=== PATIENT | female | born 1980 | race Caucasian/White ===

== ENCOUNTER 2020-06-02 09:38 | Outpatient (NON) | payer OTHER, SELFPAY ==
[2020-06-02 22:27] LABS: SARS-CoV-2 RNA PCR Negative
== END 2020-06-02 09:39 ==
PROVIDERS: Family Provider Family Medicine; PCP Family Medicine; Visit Provider Nurse Practitioner Family
DX: J06.9 Acute upper respiratory infection, unspecified (principal); Z20.822 Contact with and (suspected) exposure to COVID-19
CPT/HCPCS: C9803; U0003; U0005

== ENCOUNTER 2020-06-02 09:40 | Outpatient (NON) | payer OTHER, SELFPAY ==
[2020-06-02 14:19] LABS: Influenza Control Positive
== END 2020-06-02 09:41 ==
PROVIDERS: Family Provider Family Medicine; PCP Family Medicine; Visit Provider Nurse Practitioner Family
DX: R09.89 Other specified symptoms and signs involving the circulatory and respiratory systems (principal)
CPT/HCPCS: 87804

== ENCOUNTER → 2020-07-06 09:02 | Outpatient (CLI) | payer OTHER, SELFPAY ==
--- NOTE | ~2020-07-06 | XR_ITS ---
EXAMINATION: XR knee LT 3V DATE: 07/06/2020 09:25 INDICATION: Left knee injury. TECHNIQUE: 3 views of left knee were obtained. COMPARISON: Left knee radiographs 05/21/2012 FINDINGS: Bone alignment is normal. No fracture. There is mild osteoarthritis of medial and patellofe moral compartments. No knee joint effusion. IMPRESSION: 1. Mild left knee osteoarthritis. Reviewed, dictated and finalized at location A. 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
== END ==
PROVIDERS: PCP Family Medicine; Visit Provider Nurse Practitioner Family
DX: S89.82XA Other specified injuries of left lower leg, initial encounter (principal); M17.12 Unilateral primary osteoarthritis, left knee
CPT/HCPCS: 73562

== ENCOUNTER 2020-08-06 08:09 | Emergency (ER) | payer OTHER, SELFPAY ==
--- NOTE | ~2020-08-06 | XR_ITS ---
XR cervical spine 4-5V INDICATION: Left-sided neck pain TECHNIQUE: 5 views of the cervical spine. FINDINGS: No prior studies for comparison. The cervical spine is visualized to the cervicothoracic junction. There is no prevertebral soft tiss ue swelling, listhesis, or loss of vertebral body height. Intervertebral disc spaces are normal. Th e osseous central canal is patent. No displaced cervical spine fractures are identified. IMPRESSION: 1. No acute osseous abnormality of the cervical spine. Reviewed, dictated and finalized at location B.
--- NOTE | 2020-08-06 08:25 | ED.NECK ---
HPI - Neck Pain/Injury General Chief Complaint: Neck Pain/Injury Stated Complaint: neck pain Time Seen by Provider: 08/06/20 08:30 Source: patient, RN notes reviewed and old records reviewed Mode of arrival: ambulatory Limitations: no limitations History of Present Illness HPI Narrative: 40-year-old female who presents to [facility] care with complaints of left-sided neck pain with increased intensity since Sunday.Patient states that she went to the chiropractor and had trigger point injections on Sunday and she had an adjustment on with no improvement in her pain. Patient states that her pain is on the left side of her neck and it radiates down shoulder to her elbow on the outside region of arm. Patient states that she is having spasms to her neck and pain. She reports taking Flexeril, Nabumetone and also tramadol with minimal decrease in her symptoms. Patient states that she had a fall in June and has had problems with her neck since with increase since Sunday with no precipitated factor. MD complaint: neck pain Onset (ago): day(s) (4) Radiation: left lateral (neck), left shoulder and left upper extremity (to elbow) Severity: severe Severity scale (1-10): 8 Quality: aching Exacerbating factors: other (movement) Context: fall (in June symptoms exacerbated since Sunday) and recent chiropractic manipulation Treatments prior to arrival: prescription analgesic and other (muscle relaxer and nabumetone) Related Data Home Medications Medication Instructions Recorded Confirmed triamcinolone acetonide 55 mcg 2 spray NASAL DAILY 03/27/19 07/07/20 nasal spray aerosol Allergies Allergy/AdvReac Type Severity Reaction Status Date / Time No Known Allergies Allergy Unknown Verified 06/17/20 10:01 Review of Systems Review of Systems: Narrative: CONSTITUTIONAL: Denies fever, chills, or sweats. EYES: Denies visual changes, redness, or discharge. ENT: Denies rhinorrhea, congestion, sore throat, or otalgia. CARDIOVASCULAR: Denies chest pain, palpitations, or edema. RESPIRATORY: Denies cough or dyspnea. GASTROINTESTINAL: Denies abdominal pain, nausea, vomiting, or diarrhea. GENITOURINARY: Denies dysuria or hematuria. SKIN: Denies rash or itching. MUSCULOSKELETAL: Positive for acute left neck pain and history of chronic lower back pain, joint pain, or myalgia. NEUROLOGIC: Denies headache, numbness, or weakness. PSYCHIATRIC: Positive anxiety or depression. All systems reviewed & are unremarkable except as noted in HPI and below PMFSH Past Medical History Medical History (Updated 08/06/20 @ 09:55 by Selena Amaya NP) BMI 37.0-37.9, adult Chronic lower back pain Hidradenitis suppurativa History of sinus problem Surgical History Surgical History (Updated 08/06/20 @ 08:33 by Selena Amaya NP) History of lumbosacral spine surgery Family History Family History Father No problems noted. Mother No problems noted. 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 There is no relevant family history pertinent to the presenting complaint Exam Narrative: Exam Narrative: GENERAL: Well-appearing, well-nourished, and in mild acute distress. HEAD: Normocephalic, atraumatic. EYES: PERRLA and EOMI. ENT: Nares clear, no rhinorrhea or epistaxis. Mucous membrane
[2020-08-06 08:29] VITALS: BP 135/81; PULSE 108; RESP 16; TEMP 36.7; O2SAT 99
== END 2020-08-06 09:39 | disposition home or self-care (01) ==
PROVIDERS: Emergency Provider Registered Nurse; PCP Family Medicine
DX: M62.838 Other muscle spasm (principal); F17.200 Nicotine dependence, unspecified, uncomplicated
CPT/HCPCS: 72050; 99213; G0463

== ENCOUNTER 2021-01-09 14:32 | Emergency (ER) | payer OTHER, SELFPAY ==
[2021-01-09 14:43] VITALS: BP 132/86; PULSE 103; RESP 18; TEMP 36.4; O2SAT 98
--- NOTE | 2021-01-09 16:55 | ED.BACK ---
HPI - Back Pain/Injury General Chief Complaint: Back Pain/Injury Stated Complaint: Back Pain Time Seen by Provider: 01/09/21 16:00 Source: patient, RN notes reviewed and old records reviewed Mode of arrival: ambulatory Limitations: no limitations History of Present Illness HPI Narrative: 40 year old female who presents to [facility] care with complaints of right sided lower back pain which radiates down her right leg for the past week. Patient states history of previous back surgery and reports that she had cervical fusion in October and can not take any antiinflammatory medications for 6 months due to fusion of neck.Patient reports that she has also had some spasms to her right lower back for the past 3 days and reports some numbness at times to her right lower extremity.Has had injections to back in the past to her back and previous lumbar surgeries. MD elicited complaint: back pain Related Data Home Medications Medication Instructions Recorded Confirmed Flonase Allergy Relief 01/09/21 01/13/21 Allergies Allergy/AdvReac Type Severity Reaction Status Date / Time No Known Allergies Allergy Unknown Verified 01/13/21 10:41 Review of Systems Review of Systems: CONSTITUTIONAL: Denies fever, chills, or sweats. EYES: Denies visual changes, redness, or discharge. ENT: Denies rhinorrhea, congestion, sore throat, or otalgia. CARDIOVASCULAR: Denies chest pain, palpitations, or edema. RESPIRATORY: Denies cough or dyspnea. GASTROINTESTINAL: Denies abdominal pain, nausea, vomiting, or diarrhea. GENITOURINARY: Denies dysuria or hematuria. SKIN: Denies rash or itching. MUSCULOSKELETAL: Positive for right sided lower back pain with radiation down right leg acute on chronic condition with no reported known recent injury, cervical spine fusion October 2020 NEUROLOGIC: Denies headache, numbness, or weakness. PSYCHIATRIC: Denies anxiety or depression. All systems reviewed & are unremarkable except as noted in HPI and below PMFSH Past Medical History Medical History (Updated 01/14/21 @ 09:34 by Selena Amaya NP) BMI 37.0-37.9, adult BMI 38.0-38.9,adult BMI 39.0-39.9,adult Chronic lower back pain Fusion of spine, cervical region October 2020 Hidradenitis suppurativa History of sinus problem Sciatica Surgical History Surgical History History of lumbosacral spine surgery Family History Family History Father No problems noted. Mother No problems noted. 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 There is no relevant family history pertinent to the presenting complaint Exam Narrative: GENERAL: Well-appearing, well-nourished, and in no acute distress. HEAD: Normocephalic, atraumatic. EYES: PERRLA and EOMI. ENT: Nares clear, no rhinorrhea or epistaxis. Mucous membranes moist.TM's normal with good light reflex, throat pink with no lesions, exudates, or any tonsil enlargement. NECK: Supple.no lymphadenopathy cervical spinal fusion October 2020 CHEST: Clear to auscultation. No respiratory distress.SAO2 98% on room air HEART: Regular rate and rhythm. No murmur heard. Normal peripheral pulses. ABDOMEN: Soft, nontender, nondistended, normal active bowel sounds. EXTREMITIES: Normal range of motion. No
== END 2021-01-09 17:25 | disposition home or self-care (01) ==
PROVIDERS: Emergency Provider Registered Nurse; PCP Family Medicine
DX: M54.41 Lumbago with sciatica, right side (principal)
CPT/HCPCS: 99213; G0463

== ENCOUNTER → 2021-06-21 10:51 | Outpatient (CLI) | payer OTHER, SELFPAY ==
--- NOTE | ~2021-06-21 | XR_ITS ---
XR_CERV2-3V_CR DATE: 06/21/2021 11:06 INDICATION: Neck pain TECHNIQUE: AP, lateral, open-mouth views COMPARISON: August 06, 2020 cervical spine FINDINGS: There is interval anterior and interbody cervical spine surgical fusion at C5-C7 since Apri l 2020. There is straightening of the cervical spine. C1 and C2 are normally aligned and the odontoid process is intact. No fracture or dislocation, locked facet or prevertebral soft tissue swelling. C2-3 through C4-5 and C7-T1 interspaces appear well preserved. IMPRESSION: Status post anterior and interbody spinal fusion at C5-C7 Straightening of the cervical spine Reviewed, dictated and finalized at Location A. Reviewed, dictated and finalized at location B. 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
== END ==
PROVIDERS: PCP Nurse Practitioner Family; Visit Provider Nurse Practitioner Family
DX: M54.2 Cervicalgia (principal); Z98.1 Arthrodesis status
CPT/HCPCS: 72040

== ENCOUNTER → 2021-09-28 15:11 | Outpatient (CLI) | payer OTHER, SELFPAY ==
--- NOTE | ~2021-09-28 | MR_ITS ---
EXAMINATION: MR cervical spine wo/w con DATE: 09/28/2021 17:01 INDICATION: Neck pain since May 2021 with right-sided radiation. No trauma. TECHNIQUE: Magnetic resonance imaging (MRI) of the cervical spine was performed without and with 20 m L MultiHance intravenous contrast. Sequences included sagittal T2-weighted FSE, sagittal T2-weighted FS FSE, sagittal T1-weighted FSE, axial MERGE, and axial T2-weighted FSE. COMPARISON: X-ray cervical spine 06/21/2021. FINDINGS: Trace right mastoid effusion. C5-C7 ACDF, with expected artifacts. Craniocervical associati on and atlantoaxial joint are intact. Normal alignment. Vertebral body heights are maintained. Normal discs. The cord signal is normal. The following disc levels are specifically discussed: C2-C3: Mild diffuse bulge. There is mild left uncovertebral joint osteoarthritis. There is no facet j oint osteoarthritis. There is no neural foraminal stenosis. There is no central canal stenosis. C3-C4: The disc does not extend beyond the endplate margin. There is mild bilateral uncovertebral kiel nt osteoarthritis. There is no facet joint osteoarthritis. There is no neural foraminal stenosis. The re is no central canal stenosis. C4-C5: The disc does not extend beyond the endplate margin. There is mild bilateral uncovertebral kiel nt osteoarthritis. There is no facet joint osteoarthritis. There is no neural foraminal stenosis. The re is no central canal stenosis. C5-C6: Interbody plug remains in good position. There is mild left uncovertebral joint osteoarthritis . There is no facet joint osteoarthritis. There is no neural foraminal stenosis. There is no central canal stenosis. C6-C7: The disc does not extend beyond the endplate margin. There is mild bilateral uncovertebral kiel nt osteoarthritis. There is mild facet joint osteoarthritis. There is no neural foraminal stenosis. T here is no central canal stenosis. C7-T1: The disc does not extend beyond the endplate margin. There is mild left uncovertebral joint os teoarthritis. There is mild facet joint osteoarthritis. There is no neural foraminal stenosis. There is no central canal stenosis. IMPRESSION: 1. ACDF spanning the C5-6 and C6-levels, without obvious complication. However, hardware artifact obs cures some detail of the cord and these levels. 2. Mild degenerative uncovertebral joint and facet changes described above. Reviewed, dictated and finalized at location K. IMPRESSION: 1. ACDF spanning the C5-6 and C6-levels, without obvious complication. However, hardware artifact obscures some detail of the cord and these levels. 2. Mild degenerative uncovertebral joint and facet changes described above.
[2021-09-28 16:04] LABS: Estimated Glomerular Filt Rate > 60
== END ==
PROVIDERS: PCP Family Medicine; Visit Provider Nurse Practitioner Family
DX: M47.813 Spondylosis without myelopathy or radiculopathy, cervicothoracic region (principal); M48.03 Spinal stenosis, cervicothoracic region
CPT/HCPCS: 72156; A9577

== ENCOUNTER 2022-08-16 18:56 | Emergency (ER) | payer OTHER, SELFPAY ==
[2022-08-16 19:05] VITALS: BP 129/91; PULSE 81; RESP 16; TEMP 36.4; O2SAT 98
[2022-08-16 19:06] VITALS: BP 129/91; PULSE 81; RESP 16; TEMP 36.4; O2SAT 98
--- NOTE | 2022-08-16 19:09 | ED.ABDPAIN ---
HPI - Abdominal Pain General Chief Complaint: Abdominal Pain Stated Complaint: Abdominal Pain Time Seen by Provider: 08/16/22 19:09 Source: patient and RN notes reviewed Mode of arrival: ambulatory Limitations: no limitations History of Present Illness HPI narrative: 42-year-old female presented for complaint of upper abdominal pain since this morning. She he endorses the onset was after drinking a monster energy drink without having eaten. She also reports she has been taking prednisone for 3 days, despite history of gastric bypass surgery. She for as she was not supposed to take oral steroids; prescribed for back pain. Also reports diarrhea, which she relates to taking clindamycin for planned root canal. Denies vomiting, fever or chills. Related Data Home Medications Medication Instructions Recorded Confirmed amoxicillin 500 mg capsule 500 mg PO DIRECTED 08/16/22 08/16/22 loratadine 10 mg tablet (Claritin) 10 mg PO DAILY 08/16/22 08/16/22 omeprazole 40 mg capsule,delayed 40 mg PO DAILY 08/16/22 08/16/22 release Allergies Allergy/AdvReac Type Severity Reaction Status Date / Time No Known Allergies Allergy Unknown Verified 08/16/22 19:04 Review of Systems Review of Systems: CONSTITUTIONAL: Denies body aches, fever, chills ENT: Denies rhinorrhea, congestion CARDIOVASCULAR: Denies chest pain, palpitations, or edema. RESPIRATORY: Denies cough or dyspnea. GASTROINTESTINAL: Endorses abdominal pain, nausea, vomiting, diarrhea. Denies hematochezia, melena, hematemesis GENITOURINARY: Denies dysuria, hematuria, or CVA tenderness. SKIN: Denies rash, itching, or wounds. MUSCULOSKELETAL: Denies back pain, joint pain, or myalgia. NEUROLOGIC: Denies headache, numbness, tingling, or weakness. All systems reviewed & are unremarkable except as noted in HPI and below PMFSH Past Medical History Medical History BMI 37.0-37.9, adult BMI 38.0-38.9,adult BMI 39.0-39.9,adult Chronic lower back pain Fusion of spine, cervical region October 2020 Hidradenitis suppurativa History of sinus problem Sciatica Surgical History Surgical History History of lumbosacral spine surgery Status following surgery for weight loss Family History Family History Father No problems noted. Mother No problems noted. 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 Please see nursing chart for further information. There is no relevant family history pertinent to the presenting complaint Exam Narrative: GENERAL: mildly ill-appearing, in no acute distress. EYES: EOMI. Conjunctivae normal. ENT: Mucous membranes pink and moist. CHEST: No respiratory distress. Clear to auscultation. HEART: Regular rate and rhythm. No murmur appreciated. Normal peripheral pulses. ABDOMEN: abd soft, nondistended, normal active bowel sounds. Tender abdomen RUQ > epigastric area; No guarding, rebound tenderness, asymmetry EXTREMITIES: Normal range of motion. No edema. SKIN: Warm, dry, no rash. Capillary refill normal. Normal skin turgor. NEUR
== END 2022-08-16 19:28 | disposition home or self-care (01) ==
PROVIDERS: Emergency Provider Nurse Practitioner Family; PCP Family Medicine
DX: R10.11 Right upper quadrant pain (principal); R10.13 Epigastric pain; F17.290 Nicotine dependence, other tobacco product, uncomplicated
CPT/HCPCS: 99213; G0463

== ENCOUNTER → 2023-02-28 07:32 | Outpatient (CLI) | payer OTHER, SELFPAY ==
--- NOTE | ~2023-02-28 | XR_ITS ---
XR hip LT 2V w AP pelvis DATE: 02/28/2023 07:53 INDICATION: Left hip pain TECHNIQUE: AP pelvis. AP and lateral views of left hip. COMPARISON: None FINDINGS: Postsurgical changes including lower lumbar laminectomy and posterior and interbody spinal fusion at L4-S1. IUD overlies the pelvis. Normal alignment at the pubic symphysis and sacroiliac joints. No pelvic fracture or bone destruction is detected. No fracture or dislocation, avascular necrosis or bone destruction of the left hip. Hip joint spaces are symmetric and relatively preserved. IMPRESSION: Status post posterior and interbody spinal surgical fusion at L4-S1 IUD Reviewed, dictated and finalized at location A.
== END ==
PROVIDERS: PCP Physician Assistant Medical; Visit Provider Physician Assistant Medical
DX: M43.26 Fusion of spine, lumbar region (principal); M43.28 Fusion of spine, sacral and sacrococcygeal region; G89.29 Other chronic pain
CPT/HCPCS: 73502

== ENCOUNTER → 2023-06-25 16:17 | Outpatient (CLI) | payer OTHER, SELFPAY ==
--- NOTE | ~2023-06-25 | XR_ITS ---
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 RESULT: Lines, tubes, and devices: None. Lungs and pleura: Clear. Cardiomediastinal silhouette: Normal. Other: No acute osseous or upper abdominal finding. IMPRESSION: No acute cardiopulmonary process. Reviewed, dictated and finalized at location K. WORK FEEDER
== END ==
PROVIDERS: PCP Family Medicine; Visit Provider Nurse Practitioner Family
DX: J06.9 Acute upper respiratory infection, unspecified (principal)
CPT/HCPCS: 71046

== ENCOUNTER 2023-12-15 08:45 | Emergency (ER) | payer OTHER, SELFPAY ==
--- NOTE | ~2023-12-15 | XR_ITS ---
EXAMINATION: XR foot RT min 3V DATE: 12/15/2023 09:10 INDICATION: Right foot pain. Injury. TECHNIQUE: 4 views of right foot were obtained. COMPARISON: None. FINDINGS: There are changes of bunionectomy with 2 screws in first metatarsal. There is a punctate ca lcification adjacent to anterior process of calcaneus. There is mild osteoarthritis of some of the in terphalangeal joints. There is an enthesophyte at plantar aspect of calcaneal tuberosity. IMPRESSION: 1. Punctate calcification adjacent to anterior process of calcaneus, which may be a chip avulsion fra cture or a chronic finding. Reviewed, dictated and finalized at location A. IMPRESSION: 1. Punctate calcification adjacent to anterior process of calcaneus, which may be a chip avulsion fracture or a chronic finding.
--- NOTE | 2023-12-15 08:50 | ED.LOWEXIN ---
HPI - Extremity Injury (Lower) General Chief Complaint: Extremity Injury, Lower Stated Complaint: right ankle injury Time Seen by Provider: 12/15/23 08:47 Source: patient Mode of arrival: ambulatory Limitations: no limitations History of Present Illness HPI Narrative: Shanice is a 43-year-old female patient presenting to the clinic today with complaints of right foot pain x 1 day. She reports she rolled her foot yesterday when walking. Is having pain to the dorsal and lateral foot. Has minimal swelling. Pain is worse with ambulation. Has been using an ankle strep splint and crutches. Related Data Home Medications Medication Instructions Recorded Confirmed loratadine 10 mg tablet (Claritin) 10 mg PO DAILY 08/16/22 12/15/23 triamcinolone acetonide 55 mcg 2 spray intranasal DAILY 02/26/23 12/15/23 nasal spray aerosol (Nasacort) Allergies Allergy/AdvReac Type Severity Reaction Status Date / Time No Known Allergies Allergy Unknown Verified 12/15/23 09:01 Review of Systems Review of Systems: Pertinent positives per HPI. Patient denies any fever, chills, rash, headache, visual changes, dizziness, cough, runny nose, sore throat, shortness of breath, chest pain, palpitations, nausea, vomiting, diarrhea, constipation, abdominal pain, or any urinary issues. [facility] Past Medical History Medical History Anxiety disorder, unspecified Back spasm BMI 25.0-25.9,adult BMI 27.0-27.9,adult BMI 28.0-28.9,adult BMI 32.0-32.9,adult BMI 37.0-37.9, adult BMI 38.0-38.9,adult BMI 39.0-39.9,adult Cholecystectomy planned Chronic lower back pain Cough Elective surgery Fall Fusion of spine, cervical region October 2020 Hidradenitis suppurativa History of sinus problem Irritability Left knee injury Left knee pain Muscle spasm Neck Pain Otitis media Right acute otitis media Sciatica Screening for diabetes mellitus Sinusitis Sinusitis Upper respiratory symptom URI (upper respiratory infection) Urinary incontinence UTI (urinary tract infection) UTI symptoms Vaginal dryness Surgical History Surgical History History of bunionectomy History of lumbosacral spine surgery Status following surgery for weight loss Family History Family History Father Cirrhosis Mother Hypertension Sibling Anxiety Back pain Other Diabetes mellitus Social History Social History Smoking packs per day: 0.5 Smoking cigarettes per day: 10.0 Years smoked: 7 Smoking pack-years: 3.50 Smoking status: Former smoker Tobacco type: e-cigarettes/vaping Second hand tobacco smoke exposure: No Alcohol intake: current Substance use: never Substance use type: does not use Do You Feel Safe in your Home?: Yes Lack of Transportation: No Lack of Food: Never True Current Housing: I Have Housing Concerned About Future Housing: No Difficulty Paying Gas/Electric Bills: No Difficulty Paying for Meds: No Currently Unemployed: No Education: Associate Degree Difficulty w/ Childcare or Family Care: No Living arrangements: with family Occupation/Education: occupation 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 There is no relevant family history pertinent to the patient complaint. Exam Narrative: General: Well-developed, well nourished, in no apparent distress Head: Normocephalic, atraumatic. Cardio: Regular rate and rhythm, s1 and s2 normal, no murmur appreciated. Resp: Clear to auscultation bilaterally, no rhonchi, rales, wheezing or rubs. Musculoskeletal: No deformity
[2023-12-15 08:56] VITALS: BP 148/90; PULSE 100; RESP 16; TEMP 36.9; O2SAT 100
== END 2023-12-15 09:34 | disposition home or self-care (01) ==
PROVIDERS: Emergency Provider Nurse Practitioner Family; PCP Family Medicine
DX: M79.671 Pain in right foot (principal); S92.901A Unspecified fracture of right foot, initial encounter for closed fracture; X50.9XXA Other and unspecified overexertion or strenuous movements or postures, initial encounter
CPT/HCPCS: 73630; 99213; 99214; G0463